=== PATIENT | male | born 1980 ===

== ENCOUNTER 2016-05-05 00:49 | Day surgery (SDC) | payer OTHER ==
[2016-05-05] VITALS (13 sets, daily range): BP systolic 133–170; BP diastolic 70–123; PULSE 71–93; RESP 12–18; O2SAT 91–93
[~2016-05-05] VITALS: Ht 167.6 cm; Wt 110.6 kg
[~2016-05-05 00:49] MED LIST: CLIN40GE TP; FLUT9.9S NS; LISI1TAB9 PO; METO-274 PO; OMEG1CAP56 PO; OMEP20CA11 PO
[2016-05-05] MEDS ORDERED: fentaNYL-PF 50 mCg/mL 2 mL Inj ONE (00:50)
[2016-05-05] MEDS ORDERED: Lactated Ringer's 1,000 ML IV SCH ×2 (05:00→08:10)
[2016-05-05 06:56] LABS: BASOPHILS % (AUTO) 0.5 % (0-3); EOSINOPHILS % (AUTO) 7.5 % (0-5); MONOCYTES % (AUTO) 7.4 % (4-12); Mean Corpuscular Hemoglobin 30.3 pg (27.0-35.0); NEUTROPHILS % (AUTO) 53.3 % (40-74); Platelet Count 257 bil/L (150-400)
[2016-05-05] MEDS ORDERED: ASPI325T32 PO (06:57)
[2016-05-05 07:10] LABS: INR 0.96 ratio
[2016-05-05] MEDS ORDERED: HYDROmorphone 1 mg/mL Inj IVPUSH PRN (08:10)
[2016-05-05] MEDS ORDERED: EPHEDrine Sulfate 50 mg/mL Inj IVPUSH PRN (08:10)
[2016-05-05] MEDS ORDERED: MetoCLOpramide 5 mg/mL 2 mL Inj IVPUSH PRN (08:10)
[2016-05-05] MEDS ORDERED: fentaNYL-PF 50 mCg/mL 2 mL Inj IVPUSH PRN (08:10)
[2016-05-05] MEDS ORDERED: Dexamethasone 4 mg/mL Inj IVPUSH PRN (08:10)
[2016-05-05] MEDS ORDERED: Lactated Ringer's 500 ML IV PRN (08:10)
[2016-05-05] MEDS ORDERED: Phenylephrine 10,000 mCg/mL Inj IVPUSH PRN (08:10)
[2016-05-05] MEDS ORDERED: Ondansetron 2 mg/mL 2 mL Inj IVPUSH PRN (08:10)
--- NOTE | 2016-05-05 08:10 | PCM.HPANE ---
Patient Data Date of Service: May 05, 2016 (0800) Surgeon Admitting Provider: Attending Provider:Sushant Alberts MD Primary Care Physician:Blaine Carl MD Other Provider:Afsaneh Castanon Anesthesia Reason for Visit Supraventricular Tachycardia Ht/WT & BMI Height (Feet): 5 Height (Inches): 6.00 Weight (Kilograms): 110.600 Body Mass Index 39.19 Allergies Coded Allergies: No Known Allergies (Verified Allergy, Unknown, 09/13/15) Past Anesthesia History Anesthesia History: Denies:: Anesthesia Reactions Diabetes History Hx Diabetes?: No Medications Reported Medications Aspirin 325 Mg [id number] Mg PO DAILY #1 BOTTLE 05/05/16 Fluticasone Propionate (Flonase Allergy Relief)50 Mcg/Actuation [place].susp9.9 Ml NS daily/prn 05/04/16 Clindamycin Phosphate (Clindagel)40 Ml Gel..ml.1 Applic TP prn 05/04/16 Omeprazole 20 Mg Capsule.dr20 Mg PO DAILY Ref 0 03/22/16 Burns-3 Fatty Acids/Fish Oil (Burns 3 1,000 mg Softgel)1 Each Capsule1 Each PO daily/prn 09/13/15 Metoprolol Succinate ER 100 Mg Tab.er.24h50 Mg PO DAILY 30 Days Ref 0 09/02/14 Lisinopril / HCTZ 20-12.5 mg 1 Each Tablet1 Each PO DAILY 30 Days Ref 0 09/02/14 History History of ENT Problems?: No Hx of Heart Problems?: Yes Cardiovascular History: Positive for:: Hypertension Irregular Heartbeat (atrial fib in past sp cardioversion, svt) Denies:: Cardiac Surgery (cardioversions) Chest Pain Congestive Heart Failure Heart Murmur Hx of Respiratory Problem?: No Respiratory History: Positive for:: Pneumonia (2016) Denies:: Tuberculosis Hx Neurologic Problems?: No Hx of GI Problems?: Yes Gastrointestinal History: Positive for:: Gastrointestinal Bleeding (from esophageal ulcer) Denies:: Hepatitis Hiatal Hernia Hx of Problems?: No Hx Musculoskeletal Problems?: No Hx of Psycho/Social Problems?: Yes Psycho Social History: Positive for:: Hx Depression (long ago) Hx Surgeries?: Yes (L Knee, Jaw) Hx Any Other Health Problems?: No Other History: Positive for:: Hospitalization History Blood Transfusions: Positive for:: Accept Blood Products? Denies:: Blood Transfuse Reaction Blood Transfusions Hx Diabetes: No Hx Alcohol Use: Yes (Occasional)Hx Substance Use: No Smoking Status: Never Smoker Stop/Bang Do You Have a CPAP Machine?: No RICARDO Risk Assessment: High Risk, =/>3 Yes Risk Assessment Category Category 1A: Patient has history of documented sleep apnea, and HAS NOT received any narcotic, sedative or anesthesia administration during this stay. Category 1B: Patient has history of documented sleep apnea, and HAS received any narcotic , sedative or anesthesia administration during this stay Category 2: Patient has SUSPECTED Obstructive Sleep Apnea, and HAS received any narcotic , sedative or anesthesia administration during this stay. Category 3: Patient has SUSPECTED Obstructive Sleep Apnea and HAS NOT received narcotic, sedative or anesthesia administration during this stay. Category 4: Outpatient in Procedural Areas with known sleep apnea or who screen positive for High Risk via the STOP/BANG questionnaire. Exam Exam Vital Signs Vital Signs Date Time Temp Pulse Resp B/P Pulse Ox O2 Delivery O2 Flow Rate FiO2 05/05/16 06:43 36.9 71 18 151/96 Room Air General Appearance: Alert, Oriented X3, Cooperative HEENT/AIRWAY: MP 2 Lungs: Clear to Auscultation Heart: Exam Unremarkable Meds/Labs/Diagnostics Labs Test 05/05/16 06:20 White Blood Count 8.8th/mm3 (3.8-10.1) Red Blood Count 4.98mil/mm3 (4.40-5.80) Hemoglobin 15.1g/dL (13.8-17.2) Hematocrit 43.8% (41.0-50.0) Mean Corpuscular Volume 88.0fL (81-100) Mean Corpuscular Hemoglobin 30.3pg (27.0-35.0) Mean Corpuscular Hemoglobin Concent 34.5% (32.0-37.0) Red Cell Distribution Width 12.4% (12.3-15.4) Platelet Count 257bil/L (150-400) Neutrophils (%) (Auto) 53.3% (40-74) Lymphocytes (%) (Auto) 31.1% (14-46) Monocytes (%) (Auto) 7.4% (4-12) Eosinophils (%) (Auto) 7.5% (0-5) Basophils (%) (Auto) 0.5% (0-3) Prothrombin Time 10.3sec (8.1-12.5) Prothromb Time International Ratio 0.96ratio Sodium Level 136mEq/L (134-144) Potassium Level 4.0mEq/L (3.5-5.2) Chloride Level 98mEq/L (97-108) Carbon Dioxide Level 23mmol/L (18-29) Blood Urea Nitrogen 14mg/dL (6-20) Creatinine 0.74mg/dL (0.76-1.27) Estimat Glomerular Filtration Rate 127mL/min (>59) Glucose Level 151mg/dL (60-99) Calcium Level 9.4mg/dL (8.5-10.1) Plan Impression Patient chart reviewed, patient interviewed and anesthestic plan with risks, benefits, and alternatives discussed, and informed consent obtained. NPO Status: >8 hrs ASA Physical Status: ASA2 Mod Systemic Disease Anesthetic Support Modalities: Arterial Line Anesthetic Plan: GA Bene/Risks/Altern/Consents: Yes HP Complete Prior to Induction: Yes Marquez Roach MD May 05, 2016 08:10
[2016-05-05] MEDS ORDERED: 0.9% Sodium Chloride 1,000 ML ONE ×2 (08:11→08:55)
[2016-05-05] MEDS ORDERED: Heparin 25,000 Unit/500 mL 0.45% NS Premix IV ONE (08:11)
[2016-05-05] MEDS ORDERED: Heparin 1,000 Units/500 mL NS Premix IV ONE (08:18)
[2016-05-05] MEDS ORDERED: Heparin 1,000 Unit/mL 10 mL Inj ONE ×2 (08:18→08:40)
[2016-05-05] MEDS ORDERED: Heparin 1,000 Unit/1,000mL NS Premix IV ONE (08:18)
[2016-05-05] MEDS ORDERED: Heparin 5,000 Units/500 mL NS Premix IV ONE (08:43)
[2016-05-05] MEDS ORDERED: Isoproterenol 200 mCg/50 mL D5W IV IV ONE (09:45)
[2016-05-05] MEDS ORDERED: 0.9% Sodium Chloride 3,000 ML ONE (10:39)
[2016-05-05] MEDS ORDERED: HYDROcodone-APAP 5-325 mg Tablet PO PRN (11:40)
--- NOTE | 2016-05-05 11:51 | PCM.ANEP1 ---
Post Anesthesia Phase 1 PACU Phase 1 Assessment Date of Service: May 05, 2016 (0800) Vital Signs 95, 159/100, 16, 92%, 36.4 Vital Signs Date Time Temp Pulse Resp B/P Pulse Ox O2 Delivery O2 Flow Rate FiO2 05/05/16 06:43 36.9 71 18 151/96 Room Air Anesthetic Administered: GA Level of Alertness: Awake, talking HOLLOWAY's with Equal Strength: Yes Pain: No Nausea or Vomiting: No Oxygen Delivery: Room Air Lungs: Clear to Auscultation Dermatome Level: Full Sensation Summary uneventful Mraquez Mosquera MD May 05, 2016 11:51
--- NOTE | 2016-05-05 11:51 | PCM.ANEP2 ---
Post Anesthesia Evaluation ASA/CMS Post Anesthesia VS in Patient's Normal Range?: Yes Resp Stable; Airway Patent?: Yes CV Function & Hydration Stable: Yes Mental Status Recovered?: Yes Pain control Satisfactory?: Yes N/V Control Satisfactory?: Yes Marquez Roach MD May 05, 2016 11:51
--- NOTE | 2016-05-05 13:15 | NUR ---
Chau removed at request of patient. Urine lightly tinged with blood. Patient able to use urinal right away and had approx. 30cc urine.
--- NOTE | 2016-05-05 13:37 | PROCED ---
[address] [address] PROCEDURE NOTE PATIENT: LUIS FELIPE ALICEA : 1980 MR#: [id number] ADMIT: 05/05/2016 JOB ID: [id number] DATE OF SERVICE: 05/05/2016 PREOPERATIVE DIAGNOSIS(ES): Paroxysmal supraventricular tachycardia. 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 PROCEDURES PERFORMED: 1. Comprehensive electrophysiology study with left atrial pacing recording via the coronary sinus catheter. 2. Three-dimensional electroanatomic mapping using the CARTO 3 system. 3. Atrial ablation (supraventricular tachycardia ablation). 4. Fluoroscopy. SURGEON: Test Case Developer: Sushant Alberts MD electrophysiology attending ASSISTANTS: Nara Patel. ANESTHESIA: General endotracheal anesthesia was undertaken for this case. INDICATION: The patient is a pleasant 35-year-old man with a structurally normal heart and symptomatic drug refractory supraventricular tachycardia. After discussion of the risks and benefits of catheter-based mapping and ablation, he opted to proceed. PROCEDURAL DESCRIPTION: Following informed consent, the patient was taken to the EP laboratory in the fasting, nonsedated state. He was prepped and draped in the usual sterile fashion. The bilateral groins were infiltrated with 1% lidocaine; then, using modified Seldinger technique, an 8- and 6-Kazakh sheath were inserted into the right femoral vein and a 10.5- and 7-Kaz[place] sheath were inserted into the left femoral vein. Under fluoroscopic guidance a deflectable decapolar catheter was advanced to the coronary sinus with the most proximal bipoles at the os of the sinus. A CRD 2 catheter was advanced to the His position. A Danya quadripolar catheter was advanced to the RV apex. A comprehensive electrophysiology study was undertaken with right atrial pacing recording, right ventricular pacing recording, His bundle recording, and left atrial pacing recording via the coronary sinus catheter. Ventricular pacing led to a concentric atrial activation pattern; however, there was a shift in earliest atrial activation from the His catheter to CS os 9/10 with the coronary sinus catheter deeply embedded into the coronary sinus. Antegrade conduction did not show an antegrade jump, but did lead to the patient's clinical tachycardia. This was a regular narrow tachycardia at a cycle length of 300 msec, VA time of 90 msec, with CS 9/10 being early, again near the ostium but with the CS catheter fully embedded in the sinus. Retrograde conduction did show a retrograde jump. The initial thought was that this was an atypical AV royal reentry tachycardia (fast/slow). A 4 mm F-curve ablation catheter was therefore brought to the field and used to create a three-dimensional electroanatomic map of the right atrium, tricuspid anulus, and triangle of [place]var[place]. Ablation lesions were placed at the base of the triangle of [place]varado in the region of the slow pathway, leading to multiple conducted junctional beats. Aggressive induction maneuvers were undertaken post ablation and unfortunately the patient's clinical tachycardia was again induced. This time the tachycardia was maintained on 2 mcg/minute of isoproterenol and we were able to perform an RV entrainment maneuver. RV apical entrainment led to a short post-pacing interval tachycardia cycle length of 70 msec and a VAV response consistent with AV reciprocating tachycardia additionally. A spontaneous aberration occurred in tachycardia once with a right bundle branch morphology leading to no change in tachycardia cycle length, but another time with a left bundle branch morphology aberration leading to a lengthening of cycle length from 273 msec to 96 msec. Again this supported the presence of a left-sided pathway which was involved in the circuit. Earliest atrial activation in tachycardia was still along the septum, with CS 7/8 being earliest. This data was consistent with a likely left-sided septal pathway engaging an orthodromic AVRT. I decided to not proceed with transseptal puncture and further ablation. I did place some ablation lesions within the coronary sinus at the region of earliest atrial activation without success. All catheters and sheaths were removed. Manual pressure was held for hemostasis. The patient was transferred to the intensive care unit for monitoring, bedrest, and discharge. COMPLICATIONS: None. ESTIMATED BLOOD LOSS: Negligible. FINDINGS: 1. Baseline rhythm is sinus with an RR interval of 760 msec, [place] 150 msec, QRS 81 msec, QT 325 msec. 2. Intracardiac intervals: AH interval 65 msec, HV 56 msec. 3. Retrograde conduction: VA Wenckebach 290 msec. VERP is 230 msec at a [address] 4. Inducible clinical tachycardia at a cycle length of 300 msec, VA time of 90 msec. Earliest atrial activation was near the coronary sinus ostium. Maneuvers as described above. 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 5. Slow pathway modification performed as described above. 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 PLAN: 1. Bedrest x4 hours. 2. Resume beta blockade for now. 3. Follow up with me in clinic in four weeks. ATTENDING STATEMENT: Sushant Alberts MD, electrophysiology attending, was present for and supervised/performed all aspects of this procedure.
--- NOTE | 2016-05-05 16:34 | NUR ---
Patient has been ambulatory to bathroom, bilateral groin sites without bleeding or hematoma.Patient c/o burning at tip of penis with urination. Pt states it appears excoriated and feels "raw". Pt given petroleum jelly to cover area to prevent burning on urination.Pt's finace here to take him home, he is discharged ambulatory.
[2016-08-03] MEDS ORDERED: DABI150C PO (10:17)
[2016-08-03] MEDS ORDERED: OMEG1CAP2 PO (10:17)
== END 2016-05-05 23:59 | disposition home or self-care (01) ==
LOC: SOUO 00:49
PROVIDERS: ATTEND Internal Medicine Cardiovascular Disease
DX: I47.1 Supraventricular tachycardia (principal); I10 Essential (primary) hypertension; E66.9 Obesity, unspecified; E78.2 Mixed hyperlipidemia; I48.0 Paroxysmal atrial fibrillation; G47.30 Sleep apnea, unspecified; K76.0 Fatty (change of) liver, not elsewhere classified; Z79.82 Long term (current) use of aspirin
CPT/HCPCS: 36415; 80048; 85025; 85610; 93005; 93613; 93621; 93653; C1730; C1732; C1893; J1644; J2250; J3010; J7030; J7040

== ENCOUNTER 2016-08-04 01:12 | Day surgery (SDC) | payer OTHER ==
[~2016-08-04] VITALS: Ht 167.6 cm; Wt 114.3 kg
[~2016-08-04 01:12] MED LIST changes: +DABI150C PO; +OMEG1CAP2 PO; -OMEG1CAP56 PO
[2016-08-04] MEDS ORDERED: Lactated Ringer's 1,000 ML IV SCH (05:00)
[2016-08-04] MEDS ORDERED: Benzoc-Butamben-Tetraca Spray 20 Gm Spray TOPICAL ONE (06:00)
[2016-08-04] MEDS ORDERED: 0.9% Sodium Chloride 1,000 ML IV SCH ×2 (06:48)
[2016-08-04 06:50] VITALS: BP 161/84; PULSE 79; RESP 22; O2SAT 95
[2016-08-04] MEDS ORDERED: APIX5TAB PO (07:00)
[2016-08-04 07:03] LABS: INR 0.96 ratio
[2016-08-04 07:20] LABS: BASOPHILS % (AUTO) 0.7 % (0-3); EOSINOPHILS % (AUTO) 7.2 % (0-5); MONOCYTES % (AUTO) 13.1 % (4-12); Mean Corpuscular Hemoglobin 29.9 pg (27.0-35.0); Mean Corpuscular Volume 86.5 fL (81-100); NEUTROPHILS % (AUTO) 52.5 % (40-74); Platelet Count 221 bil/L (150-400)
--- NOTE | 2016-08-04 07:30 | NUR ---
Dr Alberts informed that patient took his eliquis last night and did not hold as instructed. He will speak to patient.
[2016-08-04] MEDS ORDERED: 0.9% Sodium Chloride 0 ML ONE (07:48)
[2016-08-04] MEDS ORDERED: Heparin 1,000 Units/500 mL NS Premix IV ONE (07:48)
[2016-08-04] MEDS ORDERED: Heparin 5,000 Units/500 mL NS Premix IV ONE (07:48)
[2016-08-04] MEDS ORDERED: Heparin 1,000 Unit/mL 10 mL Inj ONE (07:48)
[2016-08-04] MEDS ORDERED: Sodium Chloride LOK Flush 10 mL Syringe IVFLUSH SCH (08:30)
--- NOTE | 2016-08-04 08:40 | NUR ---
Dr Alberts has come to speak with patient,procedure cancelled for today. His fasting glucose is elevated, patient reports to anesthesiologist that he did have some altoids today.Pt encouraged to followup with primary doctor regarding high glucose and he is rescheduled to return 09/01.instructions given. Patient leaves ambulatory.
== END 2016-08-04 23:59 | disposition home or self-care (01) ==
LOC: SOUO 01:12
PROVIDERS: ATTEND Internal Medicine Cardiovascular Disease
DX: I48.0 Paroxysmal atrial fibrillation (principal); Z53.09 Procedure and treatment not carried out because of other contraindication; I45.6 Pre-excitation syndrome; I47.1 Supraventricular tachycardia; E78.2 Mixed hyperlipidemia
CPT/HCPCS: 36415; 80048; 85025; 85610; 93005; J1644

== ENCOUNTER 2016-09-01 00:45 | Day surgery (SDC) | payer OTHER ==
[2016-09-01] VITALS (16 sets, daily range): BP systolic 121–162; BP diastolic 74–98; PULSE 72–96; RESP 12–20; O2SAT 92–97
[~2016-09-01] VITALS: Ht 167.6 cm; Wt 114.0 kg
[~2016-09-01 00:45] MED LIST changes: +APIX5TAB PO; -DABI150C PO
[2016-09-01] MEDS ORDERED: Neostigmine 1 mg/mL 10 mL Inj ONE (00:46)
[2016-09-01] MEDS ORDERED: Ondansetron 2 mg/mL 2 mL Inj ONE ×2 (00:46→11:00)
[2016-09-01] MEDS ORDERED: Dexamethasone 4 mg/mL Inj ONE (00:46)
[2016-09-01] MEDS ORDERED: Glycopyrrolate 0.2 MG/ML 1mL Inj ONE (00:46)
[2016-09-01] MEDS ORDERED: Rocuronium 10 mg/mL 5 mL Inj ONE (00:46)
[2016-09-01] MEDS ORDERED: Phenylephrine/NS 100 mCg/mL 10 mL Syringe IVPUSH ONE (00:46)
[2016-09-01] MEDS ORDERED: Succinylcholine Chloride 20 mg/mL 5 mL Inj ONE (00:46)
[2016-09-01] MEDS ORDERED: fentaNYL-PF 50 mCg/mL 2 mL Inj ONE (00:46)
[2016-09-01] MEDS ORDERED: Propofol 10,000 mCg/mL 20 mL Inj ONE (00:46)
[2016-09-01] MEDS ORDERED: Protamine Sulfate 10 mg/mL 5 mL Inj ONE ×2 (00:46→16:03)
[2016-09-01] MEDS ORDERED: Lactated Ringer's 1,000 ML IV SCH ×2 (05:00→12:34)
[2016-09-01] MEDS ORDERED: Benzoc-Butamben-Tetraca Spray 20 Gm Spray TOPICAL PRN (10:00)
[2016-09-01 10:27] LABS: BASOPHILS % (AUTO) 0.6 % (0-3); EOSINOPHILS % (AUTO) 5.7 % (0-5); MONOCYTES % (AUTO) 8.8 % (4-12); Mean Corpuscular Hemoglobin 29.8 pg (27.0-35.0); Mean Corpuscular Volume 86.3 fL (81-100); NEUTROPHILS % (AUTO) 60.4 % (40-74); Platelet Count 248 bil/L (150-400)
[2016-09-01] MEDS ORDERED: Heparin 25,000 Unit/500 mL 0.45% NS Premix IV ONE (10:29)
[2016-09-01] MEDS ORDERED: Heparin 1,000 Unit/mL 10 mL Inj ONE (10:29)
[2016-09-01] MEDS ORDERED: Heparin 1,000 Units/500 mL NS Premix IV ONE (10:29)
[2016-09-01] MEDS ORDERED: 0.9% Sodium Chloride 5,000 ML ONE (10:29)
[2016-09-01] MEDS ORDERED: Heparin 10,000 Unit/1,000 mL NS Premix IV ONE (10:29)
[2016-09-01 10:53] LABS: INR 0.95 ratio
[2016-09-01] MEDS ORDERED: Ondansetron 2 mg/mL 2 mL Inj IVPUSH SCH (11:10)
--- NOTE | 2016-09-01 11:29 | PCM.HPANE ---
Patient Data Surgeon Admitting Provider: Attending Provider:Sushant Alberts MD Primary Care Physician:Betzy Other Provider:Afsaneh Castanon Anesthesia Reason for Visit Atrial Fibrillation Ht/WT & BMI Height (Feet): 5 Height (Inches): 6.00 Weight (Kilograms): 114.000 Body Mass Index 40.39 Allergies Coded Allergies: No Known Allergies (Verified Allergy, Unknown, 09/13/15) Past Anesthesia History Anesthesia History: Denies:: Anesthesia Reactions Diabetes History Hx Diabetes?: No MRSA MRSA: No Medications Hypertension Medication: Yes Home Meds Incl Beta Delores: Yes Date Beta Delores Taken: August 28, 2016 Previous Beta Delores Dose >24: Give Dose Perioperatively Reported Medications Apixaban (Eliquis)5 Mg Tablet5 Mg PO BID 08/04/16 [place]-3 Acid Ethyl Esters (Lovaza)1 Gm Capsule1 Gm PO BID #30 CAPSULE Ref 0 08/03/16 Fluticasone Propionate (Flonase Allergy Relief)50 Mcg/Actuation [place].susp9.9 Ml NS daily/prn 05/04/16 Clindamycin Phosphate (Clindagel)40 Ml Gel..ml.1 Applic TP prn 05/04/16 Omeprazole 20 Mg Capsule.dr20 Mg PO DAILY Ref 0 03/22/16 Metoprolol Succinate ER 100 Mg Tab.er.24h50 Mg PO DAILY 30 Days Ref 0 09/02/14 Lisinopril / HCTZ 20-12.5 mg 1 Each Tablet1 Each PO DAILY 30 Days Ref 0 09/02/14 History History of ENT Problems?: No HEENT History: Denies:: Abnormal Airway Cataracts Difficult Intubation Dysphagia Glaucoma Hearing Problem Sinus Problem TMJ Denture Type: None Teeth Condition: Within Normal Limits Hx of Heart Problems?: Yes Cardiovascular History: Positive for:: Hypertension Irregular Heartbeat (atrial fib in past sp cardioversion, svt) Denies:: Cardiac Surgery (cardioversions, ablation) Chest Pain Congestive Heart Failure Edema Heart Murmur Peripheral Vascular Hx of Respiratory Problem?: Yes Respiratory History: Positive for:: Dyspnea (SVT) Pneumonia (2016) Denies:: Asthma Chest Surgery Tuberculosis Hx Neurologic Problems?: No Hx of GI Problems?: Yes Hx of Problems?: No Hx Musculoskeletal Problems?: No Hx of Psycho/Social Problems?: Yes Psycho Social History: Denies:: Anxiety Hx Depression Hx Surgeries?: Yes (L Knee, wisdom teeth) Hx Any Other Health Problems?: Yes Other History: Positive for:: Hospitalization Denies:: Cancer Thyroid Disease History Blood Transfusions: Positive for:: Accept Blood Products? Denies:: Blood Transfuse Reaction Blood Transfusions Hx Diabetes: No Hx Alcohol Use: YesAlcoholic Drinks Per Day: 6 pack 2-3 times weeklyHx Substance Use: No Smoking Status: Never Smoker Have You Smoked inLast 12 mo: No Stop/Bang RICARDO Risk Assessment: High Risk, =/>3 Yes Risk Assessment Category Category 1A: Patient has history of documented sleep apnea, and HAS NOT received any narcotic, sedative or anesthesia administration during this stay. Category 1B: Patient has history of documented sleep apnea, and HAS received any narcotic , sedative or anesthesia administration during this stay Category 2: Patient has SUSPECTED Obstructive Sleep Apnea, and HAS received any narcotic , sedative or anesthesia administration during this stay. Category 3: Patient has SUSPECTED Obstructive Sleep Apnea and HAS NOT received narcotic, sedative or anesthesia administration during this stay. Category 4: Outpatient in Procedural Areas with known sleep apnea or who screen positive for High Risk via the STOP/BANG questionnaire. Exam Exam Vital Signs Vital Signs Date Time Temp Pulse Resp B/P Pulse Ox O2 Delivery O2 Flow Rate FiO2 09/01/16 10:30 72 16 162/98 09/01/16 10:22 36.9 72 16 162/98 95 Room Air General Appearance: Alert, Oriented X3, Cooperative, No Acute Distress HEENT/AIRWAY: MP 2 Lungs: Clear to Auscultation, Normal Air Movement Heart: Exam Unremarkable, Regular Rate/Rhythm, No Murmurs/Rubs/Gallops Meds/Labs/Diagnostics Labs Test 09/01/16 10:24 White Blood Count 8.1th/mm3 (3.8-10.1) Red Blood Count 5.27mil/mm3 (4.40-5.80) Hemoglobin 15.7g/dL (13.8-17.2) Hematocrit 45.5% (41.0-50.0) Mean Corpuscular Volume 86.3fL (81-100) Mean Corpuscular Hemoglobin 29.8pg (27.0-35.0) Mean Corpuscular Hemoglobin Concent 34.5% (32.0-37.0) Red Cell Distribution Width 12.3% (12.3-15.4) Platelet Count 248bil/L (150-400) Neutrophils (%) (Auto) 60.4% (40-74) Lymphocytes (%) (Auto) 24.3% (14-46) Monocytes (%) (Auto) 8.8% (4-12) Eosinophils (%) (Auto) 5.7% (0-5) Basophils (%) (Auto) 0.6% (0-3) Plan Impression Patient chart reviewed, patient interviewed and anesthestic plan with risks, benefits, and alternatives discussed, and informed consent obtained. NPO per Anesth. Guidelines: Yes ASA Physical Status: ASA3 Severe Disease Anesthetic Support Modalities: Arterial Line Anesthetic Plan: GA Bene/Risks/Altern/Consents: Yes HP Complete Prior to Induction: Yes Mati Plummer MD September 01, 2016 11:03
--- NOTE | 2016-09-01 11:46 | NUR ---
BELINDA Admit to [facility] bed 3 at 1015 for ablation. at bedside but has left and will check in later. Patient denies pain but C/O nausea. Medicated zofran 4mg IVP pr MD order. Nausea resolved. HL X 2 placed and labs drawn. ECG 12 done. Consent confirmed. History and medication reviewed. Pre-procedure teaching done and questions answered.
[2016-09-01] MEDS ORDERED: Lactated Ringer's 500 ML IV PRN (12:34)
[2016-09-01] MEDS ORDERED: MetoCLOpramide 5 mg/mL 2 mL Inj IVPUSH PRN (12:35)
[2016-09-01] MEDS ORDERED: Labetalol 5 mg/mL 4 mL Inj IV PRN (12:35)
[2016-09-01] MEDS ORDERED: EPHEDrine Sulfate 50 mg/mL Inj IVPUSH PRN (12:35)
[2016-09-01] MEDS ORDERED: Phenylephrine 10,000 mCg/mL Inj IVPUSH PRN (12:35)
[2016-09-01] MEDS ORDERED: fentaNYL-PF 50 mCg/mL 2 mL Inj IVPUSH PRN (12:35)
[2016-09-01] MEDS ORDERED: Ondansetron 2 mg/mL 2 mL Inj IVPUSH PRN (12:35)
[2016-09-01] MEDS ORDERED: Atropine 0.4 mg/mL Inj IVPUSH PRN (12:35)
[2016-09-01] MEDS ORDERED: HYDROmorphone 1 mg/mL Inj IVPUSH PRN (12:35)
--- NOTE | 2016-09-01 17:33 | PCM.ANEP1 ---
Post Anesthesia PACU Phase 1 Assessment Vital Signs Vital Signs Date Time Temp Pulse Resp B/P Pulse Ox O2 Delivery O2 Flow Rate FiO2 09/01/16 17:25 96 14 129/78 93 Nasal Cannula 3.00 09/01/16 17:20 36.9 93 12 126/84 94 simple 10.00 09/01/16 10:30 72 16 162/98 09/01/16 10:22 36.9 72 16 162/98 95 Room Air Anesthetic Administered: GA Level of Alertness: Awake, talking HOLLOWAY's with Equal Strength: Yes Pain: No Nausea or Vomiting: No CV Function & Hydration Stable: Yes Airway Device: Endotrachial Tube Oxygen Delivery: Simple Mask Lungs: Clear to Auscultation, Normal Air Movement PACU Phase 2 Assessment Complications: No Follow up Care: N/A Patient Instructions Provided: N/A Mati Plummer MD September 01, 2016 17:33
--- NOTE | 2016-09-01 17:42 | PROCED ---
[address] [address] PROCEDURE NOTE PATIENT: LUIS FELIPE ALICEA : 1980 MR#: [id number] ADMIT: 09/01/2016 JOB ID: [id number] DATE OF SERVICE: 09/01/2016 PREOPERATIVE DIAGNOSIS(ES): 1. Paroxysmal atrial fibrillation. 2. Paroxysmal supraventricular tachycardia with previously identified left-sided bypass tract. 3. Structurally normal heart. POSTOPERATIVE DIAGNOSIS(ES): 1. Paroxysmal atrial fibrillation. 2. Paroxysmal supraventricular tachycardia with previously identified left-sided bypass tract. 3. Structurally normal heart. PROCEDURES PERFORMED: 1. Comprehensive electrophysiology study. 2. Intracardiac echocardiography. 3. Three-dimensional electroanatomic mapping using the CARTO 3 system. 4. Transseptal puncture x2. 5. Atrial fibrillation ablation with pulmonary vein isolation. 6. Barium esophagram. 7. Left-sided free wall bypass tract ablation (additional atrial ablation focus). 8. Fluoroscopy. SURGEON: Sushant Alberts MD, electrophysiology attending. DIESEL CRANE OPERATOR: Jus Patel PA-c, Nara Marie. ANESTHESIA: General endotracheal anesthesia was undertaken for this case. INDICATION: The patient is a pleasant, 36-year-old man with a structurally normal heart, paroxysmal atrial fibrillation and paroxysmal SVT with previously identified left-sided bypass tract on EP study. After discussion of risks and benefits of catheter-based ablation for both atrial fibrillation and left-sided bypass tract to treat his SVT, he opted to proceed. PROCEDURAL DESCRIPTION: Following informed consent, the patient was taken to the EP laboratory in a fasting nonsedated state where he was prepped in the usual sterile fashion. He underwent a preprocedural transesophageal echocardiogram by Dr. Charles, confirming lack of intracardiac thrombus. Please see a separate dictated report for the details of that procedure. The bilateral groins were then infiltrated with 1% lidocaine. Then, using modified Seldinger technique, two 8-American sheaths were inserted into the right femoral vein. 7, 10.5 and 6-American sheaths were inserted into the left femoral vein under fluoroscopic guidance. A deflectable decapolar catheter was advanced to the coronary sinus with the most proximal bipoles at the os of the sinus. An intracardiac echocardiography probe was advanced to the RV outflow tract and used to visualize the pericardial space. No effusion was noted. The ICE probe was pulled back into the right atrium to visualize the interatrial septum in assistance of transseptal puncture. A Danya quadripolar catheter was advanced to the RV apex. Two transseptal punctures were performed in an identical fashion. Each of the short 8-American sheaths in the right groin were exchanged over a long wire for a Guzman sheath dilator and Crestone Brockenbrough needle. The entire system was used to engage the interatrial septum. Then, under fluoroscopic pressure and ICE guidance, the septum was traversed twice to deploy the two Guzman sheaths into the left atrium. The patient was heparinized for a goal ACT of 350-400 seconds with the entire camera within the left atrium following the first and preceding the second transseptal puncture. A resurvey of the pericardial space showed no evidence of effusion. Through the two Guzman sheaths an F curve Smart Touch irrigated ablation catheter was passed as was a 20 pole Penetrak catheter. A three-dimensional electroanatomic map of the left atrium and four pulmonary veins was created using the CARTO 3 system. The atrial fibrillation ablation was performed 1st. Each of the pulmonary veins was ablated for entrance and exit block. Circumferential ablation lesions were placed around the left upper pulmonary vein, left lower, right upper and right lower pulmonary vein in that order. We achieved entrance and exit block in all four pulmonary veins. A comprehensive electrophysiology study was undertaken with right atrial pacing recording, right ventricular pacing in His bundle recording, and left atrial pacing recording. The patient had a shift from a concentric to an eccentric activation pattern with retrograde pacing from the RV catheter. He had clinical tachycardia induced on a previous EP study and therefore we prepared for left-sided bypass tract ablation. While pacing the RV apex, I mapped for earliest atrial activation in the left atrium and ultimately identified an area overlying coronary sinus 5-6 in the mid CS. Ablation lesions were placed here and, ultimately, his activation pattern changed to concentric with intermittent VA conduction. A 20 minute waiting period was undertaken during which no further bypass tract conduction was noted. We therefore resurveyed the pericardial space. It showed no evidence of effusion, removed all catheters from the left atrium, stopped the heparin, and reversed the heparin with protamine. All catheters and sheaths were removed and manual pressure was held for hemostasis. The patient was transferred to the [facility] for monitoring and bedrest. COMPLICATIONS: None. ESTIMATED BLOOD LOSS: 10 cc. FINDINGS: 1. Baseline rhythm is sinus with an RR interval of 660 msec, NJ 153 msec, QRS 85 msec, QT 284 msec. 2. Intracardiac intervals: AH interval 65 msec. HV 56 msec. 3. Retrograde conduction initially eccentric atrial activation with ultimately concentric atrial activation following left-sided bypass tract ablation. 4. Antegrade conduction. Atrial ERP is 210 msec with a [address] Of note, the patient did not have dual AV royal physiology and has had a previous slow pathway modification. 5. Pulmonary vein isolation, as described above, with entrance and exit block. 6. Left-sided free wall bypass tract ablation. IMPRESSION: Successful pulmonary vein isolation procedure for paroxysmal drug refractory atrial fibrillation as well as left-sided bypass tract ablation. PLAN: 1. Bed rest x4 hours. 2. Monitoring overnight. 3. Resume anticoagulation immediately postprocedure. 4. Continue beta blockade and add flecainide 50 mg twice daily for three months post ablation. 5. Protonix 40 mg p.o. daily for one month. 6. Follow up with Jus Morgan in the clinic in four weeks and with me in three months. ATTENDING STATEMENT: Sushant Alberts MD, electrophysiology attending was present for and supervised/performed all aspects of this procedure.
--- NOTE | 2016-09-01 19:32 | NUR ---
[facility] Patient return to [facility] 3 from greenskeeper laborer Afib ablation at 1720. Report from cleaner laboratory equipment RN and anesthesiologist. Family at bedside. Patient denies pain. Initially sleepy but wakes to voice. No bleeding or hematoma at bilateral venous groin punctures. Pedal pulses present. Chau placed and removed in greenskeeper laborer pr patient request. HNV in [facility]. Taking PO and ate dinner. Transferred to room 2007 at 1930 by bed. Report to receiving RN.
[2016-09-01] MEDS ORDERED: Fluticasone 0.05% 15 Spray/2 Gm 16 Gm Nasal Spray NASAL PRN (19:45)
--- NOTE | 2016-09-02 03:02 | NUR ---
ADMIT to [facility] 1929: Admit to [facility] s/p Ablation for afib & SVT. Nearing the end of 4 hour bedrest. + pedal pulses, bilat groin sites assessed, palpated. Dressing to Left groin CDI. Dressing to R groin: tegaderm is lifting up, draining scant blood. This dressing removed, area cleansed w/ NS/gauze. Reapplied 2x2 gauze and tegaderm. Chau removed prior to admit to [facility]. Tolerating fluids fine; 1st void "was slightly painful, but getting better." Reports also having a dry, sore throat s/p intubation, but this is improving as the night goes on and he is still taking in fluids. NS at 100 started, then stopped as patient reports his RUE "feeling tight and swollen." currently SL. TELE NSR 89. Denies chest pain, SOB or dyspnea. 2199: OOB w/ assist, bilat groin sites palpated, no active bleeding. patient reports "they're not as tender as they were a few hours ago." Motrin given x 1 for generalized ache. Voiding fine, using urinal. tolerating RA, sats mid 90's. HOB up 15 degrees for comfort. pleasant and cooperative. call light w/in reach. CTM for changes.
[2016-09-02 03:56] VITALS: BP 132/75; PULSE 74; RESP 18; O2SAT 96
[2016-09-02 05:15] VITALS: PULSE 92
[2016-09-02] MEDS ORDERED: Pantoprazole 40 mg ER24 Tablet PO SCH (06:30)
[2016-09-02 06:51] VITALS: BP 137/95; PULSE 77; RESP 18; O2SAT 98
[2016-09-02 07:58] VITALS: PULSE 72
[2016-09-02] MEDS ORDERED: Omega-3 Fatty Acids 1,000 mg Capsule PO SCH (08:30)
[2016-09-02] MEDS ORDERED: MeTOProlol XL 50 mg ER24 Tablet PO SCH (08:30)
--- NOTE | 2016-09-02 08:59 | PCM.DIMED ---
Discharge Instructions Date of Service Sep 02, 2016 Dates of Hospitalization Discharge Diagnosis Discharge Diagnosis AV Rikki Reentrant Tachycardia, S/P AV Node slow pathway ablation AV Reentrant Tachycardia, S/P Accessory Pathway ablation Paroxysmal Atrial Fibrillation, S/P Left Atrial Pulmonary Vein Antrum Isolation Sleep Apnea Hypertension Hyperlipidemia Diet Discharge Diet: Heart Healthy Activity Discharge Activity: Other (To prevent bleeding, do not lift, push or pull more than 10 lbs for 5 days. To prevent infection, do not sit in a bath tub, hot tub or pool for 5 days.) Call your provider Call your provider for: Fever or Chills, Bleeding, Excessive diarrhea, Weakness (unilateral) Patient Instructions Mid-level Provider (F9): Jus Morgan PA-C Follow-up with Mid-level in: 4 weeks Jus Morgan PA-C Sep 02, 2016 08:59
[2016-09-02] MEDS ORDERED: FLC50T PO (09:11)
--- NOTE | 2016-09-02 11:09 | NUR ---
Discharge Pt discharged home today at 11:00. Pt off floor via wheelchair with all belongings in the company of the [employer] to private vehicle. Pt was given education based on procedure and meds and prescription was faxed to pharmacy. Pt was educated on post venous access precautions and voiced understanding. Follow up information provided.
--- NOTE | 2016-09-02 18:04 | DRSVH ---
[facility] [address] [place] [address] Echocardiogram Report Name: LUIS FELIPE ALICEA Date: Height: 66 in Hospital Exam Location: [facility] Weight: 252 lb Gender: Male BSA: 2.2 m2 : 1980 Age: 36 yrs BP: 107/58 mmHg Reason For Study: Atrial fibrillation Ordering Physician: Performed By: Phani Arana Interpretation Summary 1. Normal left ventricular size and systolic function. 2. No thrombus appreciated in the sampled segments of the left atrium or atrial appendage. 3. No valvular pathology appreciated Procedure: A 2D transesophageal echocardiogram with spectral and color flow Doppler was performed. Informed consent for Transesophageal Echocardiogram, and use of a contrast agent as needed, was obtained prior to the procedure. An intravenous line was placed. A topical anesthetic agent was used for oropharangeal anesthesia. A bite block was inserted. The patient was in normal sinus rhythm during the exam. Left Ventricle: The left ventricle is normal in size, wall thickness, and systolic function without any focal wall motion abnormalities. Right Ventricle: The right ventricular systolic function is normal. Atria: No thrombus appreciated in the sampled segments of the left atrium or left atrial appendage. Mitral Valve: The mitral valve is normal. There is trace mitral regurgitation. Aortic Valve: The aortic valve is normal in structure and function. Tricuspid Valve: The tricuspid valve is normal. There is trace tricuspid regurgitation. Pulmonic Valve: The pulmonic valve is not well seen, but is grossly normal. Reading Physician:06:04 PM
--- NOTE | 2016-09-04 05:50 | DIS ---
[address] [address] DISCHARGE SUMMARY PATIENT: LUIS FELIPE ALICEA : 1980 MR#: [id number] ADMIT: 09/01/2016 JOB ID: [id number] DIS: 09/02/2016 REASON FOR ADMISSION: EP study and AFib ablation. CHIEF COMPLAINT: Exercise-induced tachycardia, palpitations, and fatigue. BRIEF HISTORY: The patient is a pleasant 36-year-old man with a structurally normal heart who has been dealing with supraventricular tachycardia and atrial fibrillation for some time now. He had a previous EP study and ablation of an AV royal slow pathway, which was identified, and participated in AV royal reentrant tachycardia. At the end of that procedure, he still had an inducible tachycardia, which appeared to use a left-sided or septal accessory pathway, and which participated in AV reciprocating tachycardia. He also has paroxysmal atrial fibrillation. The patient was brought in at this time for left-sided procedures, which would possibly include both pulmonary vein antrum isolations for atrial fibrillation and ablation of a left-sided accessory pathway. COURSE IN HOSPITAL: The patient was brought in through the [facility], and taken to the bundle tier and labeler, where he was first placed under general anesthesia by the anesthesiologist. He then had a transesophageal echocardiogram, which ruled out any presence of left atrial thrombus. The EP study was undertaken, and after instrumentation of the left atrium and mapping, the accessory pathway was identified along the posterior wall. The atrial fibrillation ablation procedure was undertaken and completed first. Then, the accessory pathway location was identified, and the pathway was ablated successfully. At the end of the procedure, the right and left femoral venous sheaths were removed, and hemostasis was obtained. He was awakened from anesthesia and taken to the [facility] for recovery from sedation and anesthesia. Afterward, he was taken up to the floor for overnight telemetry and observation. He did well overnight. He was able to urinate spontaneously after the Chau catheter was removed. He was ambulatory without problems or bleeding. In the morning, he felt well for discharge home. He had no chest pain and no significant throat irritation. The right and left femoral venous sites were dry, and there was no hematoma. DISPOSITION: The patient was discharged home in good condition with a followup appointment at the [facility] Cardiology office in one month. To prevent bleeding, he was asked not to lift, push, or pull more than 10 pounds for five days, and to prevent infection, he was asked not to sit in a hot tub, bathtub, or pool for five days. He will follow a regular diet, and take medications as prescribed. DISCHARGE MEDICATIONS: 1. Flecainide 50 mg b.i.d.. 2. Apixaban 5 mg b.i.d. 3. 1 topical application as needed. 4. Flonase allergy relief nasal spray p.r.n. 5. Lisinopril/hydrochlorothiazide 20/12.5 mg 1 tablet daily. 6. Metoprolol succinate 50 mg daily. 7. Lovaza 1 g b.i.d. 8. Omeprazole 20 mg daily. FINAL DIAGNOSES: 1. Atrioventricular royal reentrant tachycardia, status post atrioventricular node slow pathway ablation. 2. Atrioventricular reentrant tachycardia, status post accessory pathway ablation. 3. Paroxysmal atrial fibrillation, status post left atrial pulmonary vein antrum isolation. 4. Sleep apnea. 5. Hypertension. 6. Hyperlipidemia.
== END 2016-09-02 11:00 | disposition home or self-care (01) ==
LOC: SOUO 00:45 → PCC 19:32 → SOUO 09-02 11:00
PROVIDERS: ATTEND Internal Medicine Cardiovascular Disease
DX: I48.0 Paroxysmal atrial fibrillation (principal); I47.1 Supraventricular tachycardia; G47.30 Sleep apnea, unspecified; I10 Essential (primary) hypertension; K21.9 Gastro-esophageal reflux disease without esophagitis; K76.0 Fatty (change of) liver, not elsewhere classified; E66.8 Other obesity; Z68.41 Body mass index [BMI] 40.0-44.9, adult; Z79.01 Long term (current) use of anticoagulants
CPT/HCPCS: 36415; 80048; 85025; 85610; 93005; 93613; 93655; 93656; 93662; C1730; C1732; C1759; C1769; C1894; C8925; J0330; J1100; J1644; J2250; J2370; J2405; J2710; J2720; J3010; J7030